=== PATIENT | male | born 1995 | race Caucasian/White ===

== ENCOUNTER 2023-01-01 10:22 | Inpatient (IN) | payer BC, OTHER ==
[~2023-01-01] VITALS: Ht 170.2 cm; Wt 79.6 kg
[2023-01-01 13:07] LABS: Basophils # (auto) 0.1 10 ^3/uL (0-0.2); Basophils % (auto) 0.3 % (0.0-2.0); Eosinophils # (auto) 0 10 ^3/uL (0-0.8); Eosinophils % (auto) 0.1 % (0.0-7.0); Hemoglobin 15.5 g/dL (13.5-17.5); Lymphocytes # (auto) 1.4 10 ^3/uL (0.4-5.4); Lymphocytes % (auto) 7.5 % (10.0-50.0); Mean Corpuscular Hemoglobin 30.6 pg (28.0-32.0); Mean Corpuscular Hgb Conc. 33.7 g/dL (32.0-36.0); Mean Corpuscular Volume 90.9 fL (80.0-100.0); Monocytes # (auto) 1.3 10 ^3/uL (0-1.3); Monocytes % (auto) 6.9 % (0.0-12.0); Neutrophils # (auto) 16.5 10 ^3/uL (1.6-8.6); Neutrophils % (auto) 85.2 % (37.0-80.0); Red Blood Cells 5.06 10^6/uL (4.5-5.90); Red Cell Distribution Width 12.9 % (11.8-14.3); White Blood Cell 19.3 10^3/uL (4.4-10.8)
[2023-01-01 13:26] LABS: Albumin 3.6 g/dL (3.4-5.0); Calcium 8.9 mg/dL (8.5-10.1)
[2023-01-01 13:30] LABS: BUN/Creatinine Ratio 12.5 (10.0-20.0); Bilirubin, Total 0.4 mg/dL (0.2-1.0); Total Protein 7.8 g/dL (6.4-8.2)
[2023-01-01] MEDS ORDERED: IOHEXOL 300 MG/ML 100ML BOTTLE IJ ONE (13:39)
[2023-01-01] MEDS ORDERED: PIPERACILLIN-TAZOB 3.375GM 100 ML IV ONE (14:45)
[2023-01-01] MEDS ORDERED: MORPHINE SULFATE 4 MG/ML SYR/VIAL IV PRN (14:45)
[2023-01-01] MEDS ORDERED: ONDANSETRON HCL 4 MG/2 ML VIAL IV PRN ×2 (14:45→17:15)
[2023-01-01] MEDS ORDERED: SODIUM CHLORIDE 0.9% 1,000 ML IV SCH (15:30)
[2023-01-01] MEDS ORDERED: SODIUM CHLORIDE 0.9% 2,000 ML IV ONE (15:30)
[2023-01-01] MEDS ORDERED: ACETAMINOPHEN 500 MG TAB PO ONE ×2 (16:45)
[2023-01-01] MEDS: SODIUM CHLORIDE 0.9% 1,000 ML IV SCH (17:15)
[2023-01-01] MEDS: CLINDAMYCIN 600MG IV 50 ML IV SCH (17:15)
[2023-01-01] MEDS ORDERED: ACETAMINOPHEN 325 MG TAB PO PRN (17:15)
[2023-01-01] MEDS: CEFEPIME 1GM/ 50ML 50 ML IV SCH ×2 (17:52→23:53)
[2023-01-01] MEDS: HYDROcodone-ACET 5/325MG TAB PO PRN (19:45)
[2023-01-01 20:07] LABS: Urine Bacteria NONE SEEN /hpf (None Seen); Urine Blood Negative /uL (Negative); Urine WBC 1 /hpf (0 - 3)
[2023-01-01 20:09] LABS: Urine Specific Gravity > 1.050 (1.001-1.035)
[2023-01-01 21:52] LABS: INR 1.14 (0.9-1.15)
[2023-01-01 22:00] VITALS: BP 137/75
[2023-01-01] MEDS ORDERED: TEMAZEPAM 15 MG CAP PO ONE (23:15)
[2023-01-02] MEDS: CLINDAMYCIN 600MG IV 50 ML IV SCH ×2 (00:24→10:44)
[2023-01-02 01:00] VITALS: BP 137/75
[2023-01-02] MEDS: SODIUM CHLORIDE 0.9% 1,000 ML IV SCH ×3 (01:36→17:15)
[2023-01-02] MEDS: MORPHINE SULFATE INJ 2 MG/ml SYRG IV PRN ×2 (03:26→10:43)
[2023-01-02 04:00] VITALS: BP 115/70
[2023-01-02 05:44] LABS: Basophils # (auto) 0 10 ^3/uL (0-0.2); Basophils % (auto) 0.1 % (0.0-2.0); Eosinophils # (auto) 0.1 10 ^3/uL (0-0.8); Eosinophils % (auto) 0.5 % (0.0-7.0); Hematocrit 41.8 % (41.0-53.0); Hemoglobin 14.5 g/dL (13.5-17.5); Lymphocytes # (auto) 1.5 10 ^3/uL (0.4-5.4); Lymphocytes % (auto) 8.1 % (10.0-50.0); Mean Corpuscular Hemoglobin 31.4 pg (28.0-32.0); Mean Corpuscular Hgb Conc. 34.8 g/dL (32.0-36.0); Mean Corpuscular Volume 90.4 fL (80.0-100.0); Monocytes # (auto) 1.5 10 ^3/uL (0-1.3); Neutrophils # (auto) 15.6 10 ^3/uL (1.6-8.6); Neutrophils % (auto) 83.3 % (37.0-80.0); Red Blood Cells 4.62 10^6/uL (4.5-5.90); Red Cell Distribution Width 12.7 % (11.8-14.3); White Blood Cell 18.7 10^3/uL (4.4-10.8)
[2023-01-02 06:00] LABS: BUN/Creatinine Ratio 11.4 (10.0-20.0); Calcium 8.1 mg/dL (8.5-10.1); Potassium 3.8 mmol/L (3.5-5.1)
[2023-01-02] MEDS: HYDROcodone-ACET 5/325MG TAB PO PRN ×2 (06:31→18:16)
[2023-01-02] MEDS: CEFEPIME 1GM/ 50ML 50 ML IV SCH (07:07)
[2023-01-02 09:00] VITALS: BP 130/68
[2023-01-02 13:00] VITALS: BP 133/78
[2023-01-02] MEDS: PIPERACILLIN-TAZOB 3.375GM 100 ML IV SCH ×2 (14:03→22:27)
[2023-01-02 16:27] VITALS: BP 130/69
[2023-01-03 00:13] VITALS: BP 121/70
[2023-01-03] MEDS: SODIUM CHLORIDE 0.9% 1,000 ML IV SCH ×2 (01:15→09:15)
[2023-01-03] MEDS: HYDROcodone-ACET 5/325MG TAB PO PRN ×2 (02:28→22:17)
[2023-01-03 05:14] VITALS: BP 123/63
[2023-01-03] MEDS: PIPERACILLIN-TAZOB 3.375GM 100 ML IV SCH ×4 (06:00→22:16)
[2023-01-03] MEDS: MORPHINE SULFATE INJ 2 MG/ml SYRG IV PRN (06:01)
[2023-01-03 09:07] VITALS: BP 125/73
[2023-01-03 12:21] VITALS: BP 125/70
[2023-01-03] MEDS ORDERED: LIDOCAINE 1% HCL (LOCAL ANESTH.) INJ 20ML MDV ONE (13:38)
[2023-01-03] MEDS: ceFAZolin 1GM VL ONE ×2 (14:02→14:20)
[2023-01-03] MEDS ORDERED: PROPOFOL 10 MG/ML 20 ML IV ONE (14:02)
[2023-01-03] MEDS ORDERED: fentaNYL CITRATE 100 MCG/2 ML VL ONE (14:02)
[2023-01-03] MEDS ORDERED: SODIUM CHLORIDE LOCK 10 ML ONE (14:02)
[2023-01-03] MEDS ORDERED: MIDAZOLAM HCL 2MG/2ML 2ml VIAL (1mg/ml) ONE (14:02)
[2023-01-03] MEDS ORDERED: ONDANSETRON HCL 4 MG/2 ML VIAL ONE (14:02)
[2023-01-03] MEDS ORDERED: METOCLOPRAMIDE HCL 5MG/ml INJ 2ml VIAL IV PRN (15:00)
[2023-01-03] MEDS ORDERED: MORPHINE SULFATE INJ 2 MG/ml SYRG IV PRN (15:00)
[2023-01-03] MEDS ORDERED: MEPERIDINE HCL (25 MG/ML) 1ML VIAL IM ONE (15:00)
[2023-01-03] MEDS ORDERED: HYDROmorphone HCL 2 MG/ML VL/or syr IV PRN (15:00)
[2023-01-03] MEDS: HYDROmorphone HCL 2 MG/ML VL/or syr IV PRN ×2 (15:33→15:54)
[2023-01-03 16:29] VITALS: BP 144/82
[2023-01-03 22:00] VITALS: BP 129/80
[2023-01-04] MEDS: MORPHINE SULFATE INJ 2 MG/ml SYRG IV PRN ×2 (02:21→11:57)
[2023-01-04 05:00] VITALS: BP 134/60
[2023-01-04] MEDS: PIPERACILLIN-TAZOB 3.375GM 100 ML IV SCH ×3 (05:57→22:41)
[2023-01-04 09:10] VITALS: BP 136/61
[2023-01-04 12:40] VITALS: BP 125/67
[2023-01-04 16:30] VITALS: BP 126/68
[2023-01-04 22:00] VITALS: BP 129/67
[2023-01-04] MEDS: HYDROcodone-ACET 5/325MG TAB PO PRN (22:53)
[2023-01-05 05:00] VITALS: BP 134/89
[2023-01-05] MEDS: PIPERACILLIN-TAZOB 3.375GM 100 ML IV SCH ×3 (05:42→20:47)
[2023-01-05] MEDS: HYDROcodone-ACET 5/325MG TAB PO PRN ×2 (05:50→20:46)
[2023-01-05 09:00] VITALS: BP 128/78
[2023-01-05 13:00] VITALS: BP 112/66
[2023-01-05] MEDS: MORPHINE SULFATE INJ 2 MG/ml SYRG IV PRN (16:17)
[2023-01-05 17:00] VITALS: BP 121/79
[2023-01-05 20:00] VITALS: BP 132/80
[2023-01-05 22:00] VITALS: BP 132/80
[2023-01-06 05:09] VITALS: BP 120/66
[2023-01-06] MEDS: PIPERACILLIN-TAZOB 3.375GM 100 ML IV SCH ×2 (05:49→15:14)
[2023-01-06 09:00] VITALS: BP 115/58
[2023-01-06 13:00] VITALS: BP 112/67
[2023-01-06 16:00] VITALS: BP 117/66
[2023-01-06 16:05] LABS: Basophils % (auto) 0.4 % (0.0-2.0); Eosinophils # (auto) 0.1 10 ^3/uL (0-0.8); Lymphocytes # (auto) 2.1 10 ^3/uL (0.4-5.4); Monocytes # (auto) 0.9 10 ^3/uL (0-1.3); Monocytes % (auto) 7.5 % (0.0-12.0); Neutrophils % (auto) 73.4 % (37.0-80.0)
[2023-01-06 16:08] LABS: Basophils # (auto) 0 10 ^3/uL (0-0.2); Eosinophils % (auto) 1.3 % (0.0-7.0); Hematocrit 44.9 % (41.0-53.0); Hemoglobin 15.5 g/dL (13.5-17.5); Lymphocytes % (auto) 17.4 % (10.0-50.0); Mean Corpuscular Hemoglobin 30.9 pg (28.0-32.0); Mean Corpuscular Hgb Conc. 34.5 g/dL (32.0-36.0); Mean Corpuscular Volume 89.8 fL (80.0-100.0); Neutrophils # (auto) 8.7 10 ^3/uL (1.6-8.6); Nucleated Red Blood Cells % 0.2 %; Red Blood Cells 5.01 10^6/uL (4.5-5.90); Red Cell Distribution Width 12.7 % (11.8-14.3); White Blood Cell 11.9 10^3/uL (4.4-10.8)
[2023-01-06] MEDS: AMPICILLIN & SULBACTAM SODIUM 3 GM in SODIUM CHL 0.9% 100 ML IV SCH ×2 (17:45→22:14)
[2023-01-06] MEDS ORDERED: FUROSEMIDE 100 MG/10ML VIAL IV SCH (18:00)
[2023-01-06 20:00] VITALS: BP 120/72
[2023-01-06 22:00] VITALS: BP_SYST 116; BP_SYST 120; BP_DIAS 64; BP_DIAS 72
[2023-01-06] MEDS: MORPHINE SULFATE INJ 2 MG/ml SYRG IV PRN (22:14)
[2023-01-07] MEDS: HYDROcodone-ACET 5/325MG TAB PO PRN ×2 (00:38→06:09)
[2023-01-07] MEDS: AMPICILLIN & SULBACTAM SODIUM 3 GM in SODIUM CHL 0.9% 100 ML IV SCH ×4 (03:55→21:07)
[2023-01-07 05:00] VITALS: BP 112/65
[2023-01-07 06:12] LABS: Calcium 9.1 mg/dL (8.5-10.1); Potassium 4.4 mmol/L (3.5-5.1)
[2023-01-07 08:00] VITALS: BP 120/72
[2023-01-07 09:00] VITALS: BP 104/64
[2023-01-07] MEDS ORDERED: metOLazone 5 MG TAB PO SCH (10:00)
[2023-01-07 13:00] VITALS: BP 124/81
[2023-01-07] MEDS ORDERED: AUG875T PO (14:27)
[2023-01-07 17:00] VITALS: BP 138/73
[2023-01-07 22:00] VITALS: BP 140/65
[2023-01-08] MEDS: AMPICILLIN & SULBACTAM SODIUM 3 GM in SODIUM CHL 0.9% 100 ML IV SCH ×4 (03:56→21:32)
[2023-01-08 05:00] VITALS: BP 122/61
[2023-01-08 09:16] VITALS: BP 135/61
[2023-01-08 13:30] LABS: BUN/Creatinine Ratio 10.9 (10.0-20.0); Calcium 8.3 mg/dL (8.5-10.1); Potassium 4.3 mmol/L (3.5-5.1)
[2023-01-08 13:52] VITALS: BP 119/65
[2023-01-08 17:00] VITALS: BP_SYST 127; BP_SYST 141; BP_DIAS 77; BP_DIAS 81
[2023-01-08 22:00] VITALS: BP 116/72
[2023-01-08] MEDS: HYDROcodone-ACET 5/325MG TAB PO PRN (23:27)
[2023-01-09] MEDS: AMPICILLIN & SULBACTAM SODIUM 3 GM in SODIUM CHL 0.9% 100 ML IV SCH ×3 (03:46→15:30)
[2023-01-09 05:00] VITALS: BP 114/66
[2023-01-09 08:35] VITALS: BP 111/66
[2023-01-09 11:59] LABS: Calcium 8.4 mg/dL (8.5-10.1); Potassium 4.1 mmol/L (3.5-5.1)
[2023-01-09 12:02] LABS: BUN/Creatinine Ratio 11.5 (10.0-20.0)
[2023-01-09 12:32] VITALS: BP 105/60
[2023-01-09 16:45] VITALS: BP 144/71
== END 2023-01-09 16:50 | disposition home or self-care (01) | DRG 854 ==
LOC: ER 10:22 → OVERFLOW 17:10 → WEST WING 22:15
PROVIDERS: ADMIT Registered Nurse; ATTEND Internal Medicine
PROC: 0V950ZZ Drainage of Scrotum, Open Approach (ICD-10-PCS; principal; 2023-01-03 14:09)
DX: A41.9 Sepsis, unspecified organism (principal); N45.4 Abscess of epididymis or testis; Z88.8 Allergy status to other drugs, medicaments and biological substances; Z88.1 Allergy status to other antibiotic agents
CPT/HCPCS: 36415; 71045; 74177; 76870; 80048; 80053; 81001; 83036; 83605; 83735; 85025; 85610; 86703; 87040; 87070; 87075; 87081; 87086; 87205; 96365; G0378; J0690; J2001; J2250; J2405; J2543; J2704; J3490